=== PATIENT | female | born 1995 | race Caucasian/White ===

== ENCOUNTER 2016-06-02 21:31 | Emergency (ER) | payer OTHER ==
[~2016-06-02] VITALS: Ht 157.5 cm; Wt 119.3 kg
[2016-06-03 02:07] VITALS: BP 125/88
== END 2016-06-03 02:07 | disposition home or self-care (01) ==
LOC: ED 21:31
DX: L03.011 Cellulitis of right finger (principal)
CPT/HCPCS: J2001

== ENCOUNTER 2016-11-13 13:37 | Emergency (ER) | payer OTHER ==
[2016-11-13 15:14] VITALS: BP 135/89
== END 2016-11-13 15:14 | disposition home or self-care (01) ==
LOC: ED 13:37
DX: J06.9 Acute upper respiratory infection, unspecified (principal); R11.10 Vomiting, unspecified
CPT/HCPCS: Q0092

== ENCOUNTER 2017-04-11 18:06 | Emergency (ER) | payer OTHER ==
[~2017-04-11] VITALS: Ht 154.9 cm; Wt 120.2 kg
[2017-04-11 18:56] VITALS: Ht 154.9 cm; Wt 120.2 kg
[2017-04-11 21:06] LABS: BASOPHIL % 0.3 % (0-2); PLATELET COUNT 276 x10^3mcL (130-400); RED CELL DISTRIBUTION WIDTH 12.7 % (11.5-14.5)
[2017-04-11 21:22] LABS: CALCIUM 9.3 mg/dL (8.5-10.1); CARBON DIOXIDE 27.4 mmol/L (21-32); CHLORIDE SERUM 103 mmol/L (98-107); CREATININE SERUM 0.4 mg/dL (0.6-1.0); GFR1 > 60 mL/min; GLUCOSE SERUM 126 mg/dL (74-106); POTASSIUM SERUM 4.3 mmol/L (3.5-5.1); SODIUM SERUM 141 mmol/L (136-145)
[2017-04-11 21:26] LABS: ALBUMIN 3.9 g/dL (3.4-5.0); ALKALINE PHOSPHATASE 80 U/L (46-116); ALT/SGPT 90 U/L (14-59); AST/SGOT 54 U/L (15-37); BILIRUBIN TOTAL 0.52 mg/dL (0.20-1.00); LIPASE 251 IU/L (73-393); TOTAL PROTEIN, SERUM 7.5 g/dL (6.4-8.2)
[2017-04-11 22:13] VITALS: BP 126/72
== END 2017-04-11 23:01 | disposition home or self-care (01) ==
LOC: ED 18:06
PROVIDERS: Emergency Medicine
DX: R10.9 Unspecified abdominal pain (principal); R11.10 Vomiting, unspecified; R19.7 Diarrhea, unspecified
CPT/HCPCS: 87804; J7030

== ENCOUNTER 2017-04-20 11:27 | Emergency (ER) | payer OTHER ==
[~2017-04-20] VITALS: Ht 154.9 cm; Wt 120.7 kg
[2017-04-20 12:41] VITALS: BP 115/58
== END 2017-04-20 12:41 | disposition home or self-care (01) ==
LOC: ED 11:27
DX: R11.2 Nausea with vomiting, unspecified (principal); R10.9 Unspecified abdominal pain; R51 Headache
CPT/HCPCS: Q0162

== ENCOUNTER 2017-08-02 08:42 | Emergency (ER) | payer OTHER ==
[~2017-08-02] VITALS: Ht 162.6 cm; Wt 115.7 kg
[2017-08-02 08:45] VITALS: Ht 162.6 cm; Wt 115.7 kg
[2017-08-02 09:47] VITALS: BP 120/64
== END 2017-08-02 09:47 | disposition home or self-care (01) ==
LOC: ED 08:42
DX: J03.90 Acute tonsillitis, unspecified (principal)
CPT/HCPCS: J0561; J1100; J1885